=== PATIENT | male | born 1960 | race Two or more races ===

== ENCOUNTER 2020-04-16 05:22 | Emergency (ER) | payer OTHER ==
[~2020-04-16] VITALS: Ht 167.6 cm; Wt 83.0 kg
[2020-04-16] MEDS ORDERED: TENORMIN25 MG (05:49)
== END 2020-04-16 15:37 | disposition home or self-care (01) ==
LOC: ER 05:22
DX: N30.81 Other cystitis with hematuria (principal)

== ENCOUNTER 2022-04-03 11:42 | Emergency (ER) | payer OTHER ==
[~2022-04-03] VITALS: Ht 167.6 cm; Wt 83.5 kg
[~2022-04-03 11:42] MED LIST: TENORMIN25 MG
[2022-04-03] MEDS ORDERED: ZESTRIL2.5 MG PO (11:52)
== END 2022-04-03 13:56 | disposition home or self-care (01) ==
LOC: ER 11:42
DX: B34.9 Viral infection, unspecified (principal); Z20.822 Contact with and (suspected) exposure to COVID-19; Z88.6 Allergy status to analgesic agent; I10 Essential (primary) hypertension

== ENCOUNTER 2022-04-30 10:16 | Emergency (ER) | payer OTHER ==
[~2022-04-30] VITALS: Ht 167.6 cm; Wt 83.5 kg
[~2022-04-30 10:16] MED LIST changes: +ZESTRIL2.5 MG PO
[2022-04-30] MEDS ORDERED: ZESTRIL10 M1 PO (10:29)
[2022-04-30] MEDS ORDERED: CIPRO500 MG PO (14:15)
[2022-04-30] MEDS ORDERED: PYRIDIUM200 MG PO (14:15)
[2022-04-30] MEDS ORDERED: NORFLEX100MG PO (14:19)
== END 2022-04-30 14:34 | disposition home or self-care (01) ==
LOC: ER 10:16
DX: N39.0 Urinary tract infection, site not specified (principal); R30.0 Dysuria; M54.59 Other low back pain; Z20.822 Contact with and (suspected) exposure to COVID-19; Z88.6 Allergy status to analgesic agent

== ENCOUNTER 2022-06-14 09:24 | Emergency (ER) | payer OTHER ==
[~2022-06-14] VITALS: Ht 167.6 cm; Wt 83.0 kg
[~2022-06-14 09:24] MED LIST changes: +CIPRO500 MG PO; +NORFLEX100MG PO; +PYRIDIUM200 MG PO; +ZESTRIL10 M1 PO
== END 2022-06-14 12:32 | disposition home or self-care (01) ==
LOC: ER 09:24
DX: R42 Dizziness and giddiness (principal); I10 Essential (primary) hypertension; Z20.822 Contact with and (suspected) exposure to COVID-19; Z88.6 Allergy status to analgesic agent